=== PATIENT | male | born 1985 | race Caucasian/White ===

== ENCOUNTER 2020-09-18 17:04 | Emergency (ER) | payer BC, OTHER ==
[~2020-09-18] VITALS: Ht 177.8 cm; Wt 83.9 kg
[2020-09-18] MEDS ORDERED: ONDANSETRON HCL 4 MG/2 ML VIAL IV ONE (19:00)
[2020-09-18] MEDS ORDERED: MORPHINE SULF INJ 2 MG/ML SYRINGE 1ML IV ONE ×2 (19:00→20:00)
[2020-09-18 19:09] VITALS: BP 108/73
== END 2020-09-18 23:03 | disposition home or self-care (01) ==
LOC: ER 17:07
DX: S63.105A Unspecified dislocation of left thumb, initial encounter (principal); V29.9XXA Motorcycle rider (driver) (passenger) injured in unspecified traffic accident, initial encounter; Y93.89 Activity, other specified; Y92.89 Other specified places as the place of occurrence of the external cause; Y99.8 Other external cause status
CPT/HCPCS: 26770; 70450; 73120; 73140; 73620; 96374; 96375; 96376; 99285; J2270; J2405; 29130